=== PATIENT | female | born 1965 | race Caucasian/White ===

== ENCOUNTER 2017-01-28 12:25 | Emergency (ER) | payer OTHER ==
[~2017-01-28] VITALS: Ht 170.2 cm; Wt 80.3 kg
[~2017-01-28 12:25] MED LIST: ALBUTEROL SULF8.5 GM IH; ALEVE220 MG PO; AUGMENTIN875 MG PO; AZITHROMYCIN500 M1 PO; CEFTIN500 MG PO; CITALOPRAM HBR20 MG PO; GABAPENTIN300 MG PO; GLIMEPIRIDE2 MG PO; GLUCOPHAGE1000 MG PO; LIDODERM 5% P1 PATCH TD; MELOXICAM15 MG PO; METAXALONE800 MG PO; METFORMIN HCL1000 MG PO; MULTIVITAMIN1 EAC2 PO; NOHOMEMEDS; NORTRIPTYLINE H25 MG PO; PERCOCET 5/31 TABLET PO; PHENERGAN-CODE120 ML PO; PREDNISONE10 M1 PO; PREDNISONE10 MG PO; PREDNISONE50 MG PO; PREMARIN0.625 MG PO; PROAIR HFA8.5 GM IH; TIZANIDINE HCL4 MG PO; ULTRAM50 MG PO; VENTOLIN HFA18 GM IH; ZOFRAN ODT8 MG PO; ZOFRAN4 MG PO
[2017-01-28 13:39] LABS: EOSINOPHIL (%) 1.5 % (0-5); EOSINOPHIL COUNT 0.2 K/uL (0-0.3); HEMATOCRIT 44.4 % (36.0-46.0); IMMATURE GRANULOCYTE (%) 0.4 % (0.0-0.7); INSTRUMENT ABS NEUTROPHIL CT 5.9 K/uL; LYMPHOCYTE COUNT 3.2 K/uL (1.0-2.8); MCH 30.2 PG (29.0-34.0); MCHC 32.9 G/DL (30.0-36.0); MCV 91.7 FL (83-99); MEAN PLAT.VOLUME 9.7 uM^3 (9.5-12.4); MONOCYTE (%) 5.8 % (3-12); MONOCYTE COUNT 0.6 K/uL (0-0.8); NEUTROPHIL (%) 59.9 % (45-76); NEUTROPHIL COUNT 5.9 K/uL (1.8-6.4); PLATELET COUNT 292 K/uL (156-360); RBC DIS.WIDTH-CV 12.2 % (11.8-14.6); RBC DIS.WIDTH-SD 41.2 % (39-53); RED BLOOD COUNT 4.84 M/uL (3.80-5.20); WHITE BLOOD COUNT 9.9 K/uL (4.1-10.2)
[2017-01-28 14:01] LABS: ANION GAP 12 MEQ/L (2-14); CHLORIDE 104 MEQ/L (99-109); POTASSIUM 3.5 MEQ/L (3.7-5.4); SAMPLE HEMOLYSIS CHECK 0; SAMPLE ICTERIC CHECK 0; SAMPLE LIPEMIA CHECK 0; SODIUM 140 MEQ/L (136-147)
[2017-01-28 14:06] LABS: GFR ESTIMATE (CALCULATED) > 59 mL/min/; GLUCOSE 162 mg/dL (70-99); UREA NITROGEN (BUN) 10 mg/dL (9-23)
[2017-01-28] MEDS ORDERED: ZITHROMAX Z-PA250 MG PO (14:33)
[2017-01-28] MEDS ORDERED: PREDNISONE50 MG PO (14:33)
[2017-01-28 14:51] VITALS: BP 115/71
== END 2017-01-28 14:54 | disposition home or self-care (01) ==
LOC: EME 12:25
PROVIDERS: Emergency Medicine
DX: J44.0 Chronic obstructive pulmonary disease with (acute) lower respiratory infection (principal); J20.9 Acute bronchitis, unspecified; J44.1 Chronic obstructive pulmonary disease with (acute) exacerbation; J45.909 Unspecified asthma, uncomplicated; E11.9 Type 2 diabetes mellitus without complications; F17.200 Nicotine dependence, unspecified, uncomplicated; Z79.84 Long term (current) use of oral hypoglycemic drugs
CPT/HCPCS: 71010; 80048; 85025; 94640; 99281; 99285; J7512

== ENCOUNTER 2017-04-15 16:03 | Emergency (ER) | payer OTHER ==
[~2017-04-15] VITALS: Ht 172.7 cm; Wt 80.2 kg
[~2017-04-15 16:03] MED LIST changes: +ZITHROMAX Z-PA250 MG PO
[2017-04-15 17:24] LABS: HEMATOCRIT 41.1 % (36.0-46.0); MCH 30.3 PG (29.0-34.0); MCHC 33.3 G/DL (30.0-36.0); MCV 90.9 FL (83-99); MEAN PLAT.VOLUME 9.6 uM^3 (9.5-12.4); PLATELET COUNT 274 K/uL (156-360); RBC DIS.WIDTH-CV 12.5 % (11.8-14.6); RBC DIS.WIDTH-SD 41.7 % (39-53); RED BLOOD COUNT 4.52 M/uL (3.80-5.20); WHITE BLOOD COUNT 9.9 K/uL (4.1-10.2)
[2017-04-15 17:33] LABS: CHLORIDE 104 mEq/L (99-109); SODIUM 137 mEq/L (136-147)
[2017-04-15 17:35] LABS: GLUCOSE 101 mg/dL (70-99)
[2017-04-15 17:36] LABS: ANION GAP 8 MEQ/L (2-14)
[2017-04-15 17:39] LABS: GFR ESTIMATE (CALCULATED) > 59 mL/min/
[2017-04-15 17:40] LABS: UREA NITROGEN (BUN) 11 mg/dL (9-23)
[2017-04-15 17:41] LABS: CREATINE KINASE 203 IU/L (1-294); TOTAL CK 203 IU/L (1-294)
[2017-04-15 17:45] LABS: TROP-I INTERPRETATION NEGATIVE; TROPONIN-I < 0.01 ng/mL (0.0-0.30)
[2017-04-15 18:23] VITALS: BP 128/71
== END 2017-04-15 18:25 | disposition home or self-care (01) ==
LOC: EME 16:03
PROVIDERS: Physician Assistant
DX: R07.9 Chest pain, unspecified (principal); S63.502A Unspecified sprain of left wrist, initial encounter; W18.30XA Fall on same level, unspecified, initial encounter; Y93.89 Activity, other specified
CPT/HCPCS: 71020; 73110; 80048; 82550; 82553; 84484; 85027; 93005; 99281; 99283

== ENCOUNTER 2018-03-09 22:09 | Emergency (ER) | payer OTHER ==
[~2018-03-09] VITALS: Ht 170.2 cm; Wt 88.3 kg
[2018-03-09 23:28] LABS: HEMATOCRIT 42.3 % (36.0-46.0); HEMOGLOBIN 14.6 G/DL (11.9-15.5); MCH 31.4 PG (29.0-34.0); MCHC 34.5 G/DL (30.0-36.0); PLATELET COUNT 294 K/uL (156-360); RBC DIS.WIDTH-CV 12.7 % (11.8-14.6); RBC DIS.WIDTH-SD 41.6 % (39-53); RED BLOOD COUNT 4.65 M/uL (3.80-5.20); WHITE BLOOD COUNT 12.8 K/uL (4.1-10.2)
[2018-03-09 23:39] LABS: CHLORIDE 103 mEq/L (99-109); POTASSIUM 3.7 mEq/L (3.7-5.4); SODIUM 140 mEq/L (136-147)
[2018-03-09 23:41] LABS: GLUCOSE 100 mg/dL (70-99)
[2018-03-09 23:45] LABS: CREATININE 0.7 mg/dL (0.6-1.3); GFR ESTIMATE (CALCULATED) > 59 mL/min/
[2018-03-09 23:46] LABS: UREA NITROGEN (BUN) 14 mg/dL (9-23)
[2018-03-10] MEDS ORDERED: CLEOCIN300 MG PO (01:00)
[2018-03-10] MEDS ORDERED: PERCOCET 5/31 TABLET PO (01:00)
[2018-03-10 01:25] VITALS: BP 145/93
== END 2018-03-10 01:25 | disposition home or self-care (01) ==
LOC: EME 22:09
PROVIDERS: Physician Assistant
DX: L03.116 Cellulitis of left lower limb (principal); E11.621 Type 2 diabetes mellitus with foot ulcer; L97.529 Non-pressure chronic ulcer of other part of left foot with unspecified severity; Z91.030 Bee allergy status
CPT/HCPCS: 73630; 80048; 85027; 99281; 99284